=== PATIENT | male | born 1970 | race African-American/Black ===

== ENCOUNTER 2022-03-21 09:49 | Inpatient (IN) | payer OTHER ==
[2022-03-21 10:17] VITALS: BMI 21.9
[2022-03-21] MEDS ORDERED: BENZOCAINE/MENTHOL (CHLORASEPTIC ) LOZENGE MM PRN (11:11)
[2022-03-21] MEDS ORDERED: NICOTINE 10 MG CARTRIDGE (INHALER) IH PRN (11:11)
[2022-03-21] MEDS ORDERED: MAG HYDROX/AL HYDROX/SIMETH 30 ML UNIT-DOSE CUP PO PRN (11:11)
[2022-03-21] MEDS ORDERED: LOPERAMIDE HCL 2 MG CAPSULE PO PRN (11:11)
[2022-03-21] MEDS ORDERED: POLYETHYLENE GLYCOL (HEALTHYLAX) 3350 17 GM PACKET PO PRN (11:11)
[2022-03-21] MEDS ORDERED: ACETAMINOPHEN 325 MG TABLET (FP) PO PRN ×2 (11:11)
[2022-03-21] MEDS ORDERED: ONDANSETRON *ODT* 4 MG TABLET SL PRN (11:11)
[2022-03-21] MEDS ORDERED: DICYCLOMINE HCL 10 MG CAPSULE PO PRN (11:11)
[2022-03-21] MEDS ORDERED: BISMUTH SUBSALICYLATE 262 MG/15 ML BTL PO PRN (11:11)
[2022-03-21] MEDS ORDERED: IBUPROFEN 600 MG TABLET (FP) PO PRN (11:11)
[2022-03-21] MEDS ORDERED: MAGNESIUM HYDROX 2400MG/30ML ORAL SUSPENSION 30 ML CUP PO PRN (11:11)
[2022-03-21] MEDS ORDERED: IBUPROFEN 400 MG TABLET (FP) PO PRN (11:11)
[2022-03-21] MEDS ORDERED: hydrOXYzine PAMOATE 25 MG CAPSULE (FP) PO PRN (11:11)
[2022-03-21] MEDS ORDERED: METHOCARBAMOL 500 MG TABLET PO PRN (11:11)
[2022-03-21] MEDS ORDERED: IBUPROFEN 600 MG TABLET (FP) PO ONE (11:41)
[2022-03-21] MEDS: NICOTINE 7 MG/24 HOURS TOPICAL PATCH TD SCH (12:43)
[2022-03-21] MEDS: levETIRAcetam 500 MG TABLET (FP) PO SCH ×2 (12:43→22:31)
[2022-03-21 14:48] LABS: HEMATOCRIT 30.3 % (35.4-49); HEMOGLOBIN 9.7 GM/dL (11.7-16.9); MCH 32.7 pg (25.7-33.7); MEAN CELL VOLUME 102.5 fl (80-96); MEAN PLT VOLUME 7.6 fl (7.5-11.1); PLATELET COUNT 134 10^3/uL (134-434); RBC 2.96 M/mm3 (4.00-5.60); RDW 14.2 % (11.9-15.9)
[2022-03-21 15:27] LABS: CHLORIDE 101 mmol/L (98-107); SODIUM 141 mmol/L (136-145)
[2022-03-21 15:39] LABS: CALCIUM 9.4 mg/dL (8.5-10.1); CO2 27 mmol/L (21-32); SGPT/ALT 40 U/L (13-61)
[2022-03-21 15:40] LABS: GLUCOSE,RANDOM 200 mg/dL (74-106)
[2022-03-21 15:41] LABS: TOT PROT 7.4 g/dl (6.4-8.2)
[2022-03-21 15:42] LABS: CREATININE 0.8 mg/dL (0.55-1.3); SGOT/AST 77 U/L (15-37)
[2022-03-21 15:43] LABS: ALK PHOS 97 U/L (45-117)
[2022-03-21 15:46] LABS: BILIRUBIN,TOTAL 1.4 mg/dL (0.2-1)
[2022-03-21 15:47] LABS: ANION GAP 13 MMOL/L (8-16)
[2022-03-21] MEDS ORDERED: POTASSIUM CHLORIDE ORAL LIQUID 20 MEQ/15 ML PO ONE ×2 (16:00→18:00)
[2022-03-21] MEDS: FERROUS SO4 325 MG TABLET (FP) PO SCH (17:51)
[2022-03-21] MEDS: THIAMINE HCL 100 MG TABLET (FP) PO SCH (22:31)
[2022-03-21] MEDS: MELATONIN 5 MG TABLETS PO SCH (22:31)
[2022-03-21] MEDS: POTASSIUM CHLORIDE ORAL LIQUID 20 MEQ/15 ML PO SCH (22:31)
[2022-03-22] MEDS: FERROUS SO4 325 MG TABLET (FP) PO SCH ×2 (07:43→17:59)
[2022-03-22] MEDS ORDERED: chlordiazePOXIDE HCL 25 MG CAPSULE PO PRN (10:03)
[2022-03-22] MEDS: levETIRAcetam 500 MG TABLET (FP) PO SCH ×2 (10:14→22:38)
[2022-03-22] MEDS: POTASSIUM CHLORIDE ORAL LIQUID 20 MEQ/15 ML PO SCH ×2 (10:14→22:38)
[2022-03-22] MEDS: PRENATAL VITAMINS W/ FOLIC ACID TABLET (FP) PO SCH (10:14)
[2022-03-22] MEDS: NICOTINE 7 MG/24 HOURS TOPICAL PATCH TD SCH (10:16)
[2022-03-22] MEDS: chlordiazePOXIDE HCL 25 MG CAPSULE PO SCH ×3 (11:36→22:38)
[2022-03-22] MEDS: MELATONIN 5 MG TABLETS PO SCH (22:37)
[2022-03-22] MEDS: THIAMINE HCL 100 MG TABLET (FP) PO SCH (22:37)
[2022-03-23] MEDS: chlordiazePOXIDE HCL 25 MG CAPSULE PO SCH ×4 (06:16→22:23)
[2022-03-23] MEDS: FERROUS SO4 325 MG TABLET (FP) PO SCH ×2 (07:48→17:28)
[2022-03-23] MEDS: POTASSIUM CHLORIDE ORAL LIQUID 20 MEQ/15 ML PO SCH ×2 (10:30→21:38)
[2022-03-23] MEDS: PRENATAL VITAMINS W/ FOLIC ACID TABLET (FP) PO SCH (10:30)
[2022-03-23] MEDS: NICOTINE 7 MG/24 HOURS TOPICAL PATCH TD SCH (10:31)
[2022-03-23] MEDS: levETIRAcetam 500 MG TABLET (FP) PO SCH ×2 (10:31→21:38)
[2022-03-23 14:44] LABS: HEMATOCRIT 35.8 % (35.4-49); HEMOGLOBIN 11.6 GM/dL (11.7-16.9); MCH 33.5 pg (25.7-33.7); MCHC 32.5 g/dl (32.0-35.9); MEAN CELL VOLUME 103.3 fl (80-96); MEAN PLT VOLUME 8.6 fl (7.5-11.1); PLATELET COUNT 189 10^3/uL (134-434); RBC 3.47 M/mm3 (4.00-5.60); RDW 14.7 % (11.9-15.9); WHITE BLOOD COUNT 4.8 K/mm3 (4.0-10.0)
[2022-03-23 15:09] LABS: ALBUMIN 4.2 g/dl (3.4-5.0); BLOOD UREA NITROGEN 4.9 mg/dL (7-18)
[2022-03-23 15:12] LABS: CREATININE 0.7 mg/dL (0.55-1.3)
[2022-03-23 15:14] LABS: BILIRUBIN,TOTAL 0.5 mg/dL (0.2-1)
[2022-03-23 15:38] LABS: CALCIUM 10.4 mg/dL (8.5-10.1)
[2022-03-23] MEDS: THIAMINE HCL 100 MG TABLET (FP) PO SCH (21:38)
[2022-03-23] MEDS: MELATONIN 5 MG TABLETS PO SCH (21:38)
[2022-03-24] MEDS: chlordiazePOXIDE HCL 25 MG CAPSULE PO SCH ×4 (05:45→22:27)
[2022-03-24] MEDS: FERROUS SO4 325 MG TABLET (FP) PO SCH ×2 (07:37→18:09)
[2022-03-24] MEDS: levETIRAcetam 500 MG TABLET (FP) PO SCH ×2 (10:23→22:26)
[2022-03-24] MEDS: POTASSIUM CHLORIDE ORAL LIQUID 20 MEQ/15 ML PO SCH (10:23)
[2022-03-24] MEDS: NICOTINE 7 MG/24 HOURS TOPICAL PATCH TD SCH (10:23)
[2022-03-24] MEDS: PRENATAL VITAMINS W/ FOLIC ACID TABLET (FP) PO SCH (10:23)
[2022-03-24] MEDS: MELATONIN 5 MG TABLETS PO SCH (22:26)
[2022-03-24] MEDS: THIAMINE HCL 100 MG TABLET (FP) PO SCH (22:27)
[2022-03-25] MEDS ORDERED: chlordiazePOXIDE HCL 10 MG CAPSULE PO PRN
[2022-03-25] MEDS: chlordiazePOXIDE HCL 10 MG CAPSULE PO SCH ×4 (05:29→22:27)
[2022-03-25] MEDS: FERROUS SO4 325 MG TABLET (FP) PO SCH ×2 (07:28→17:51)
[2022-03-25] MEDS: NICOTINE 7 MG/24 HOURS TOPICAL PATCH TD SCH (10:16)
[2022-03-25] MEDS: PRENATAL VITAMINS W/ FOLIC ACID TABLET (FP) PO SCH (10:16)
[2022-03-25] MEDS: levETIRAcetam 500 MG TABLET (FP) PO SCH ×2 (10:16→22:27)
[2022-03-25] MEDS: MELATONIN 5 MG TABLETS PO SCH (22:27)
[2022-03-25] MEDS: THIAMINE HCL 100 MG TABLET (FP) PO SCH (22:27)
[2022-03-26] MEDS: chlordiazePOXIDE HCL 10 MG CAPSULE PO SCH ×2 (05:37→18:25)
[2022-03-26] MEDS: FERROUS SO4 325 MG TABLET (FP) PO SCH ×2 (07:06→18:25)
[2022-03-26] MEDS: PRENATAL VITAMINS W/ FOLIC ACID TABLET (FP) PO SCH (10:12)
[2022-03-26] MEDS: levETIRAcetam 500 MG TABLET (FP) PO SCH ×2 (10:12→22:14)
[2022-03-26] MEDS: NICOTINE 7 MG/24 HOURS TOPICAL PATCH TD SCH (10:12)
[2022-03-26] MEDS: MELATONIN 5 MG TABLETS PO SCH (22:14)
[2022-03-26] MEDS: THIAMINE HCL 100 MG TABLET (FP) PO SCH (22:14)
[2022-03-27] MEDS ORDERED: chlordiazePOXIDE HCL 10 MG CAPSULE PO ONE (05:00)
[2022-03-27] MEDS: FERROUS SO4 325 MG TABLET (FP) PO SCH (07:03)
[2022-03-27 09:04] VITALS: BP 121/83; PULSE 84; RESP 16; TEMP 96.8
== END 2022-03-27 10:22 | disposition other institution (70) | DRG 775 ==
LOC: YASAS 09:49 → Y3N 11:29
PROVIDERS: ADMIT Allergy & Immunology; ATTEND Surgery
PROC: HZ2ZZZZ Detoxification Services for Substance Abuse Treatment (ICD-10-PCS; principal; 2022-03-21)
DX: F10.230 Alcohol dependence with withdrawal, uncomplicated (principal); F12.20 Cannabis dependence, uncomplicated; F17.210 Nicotine dependence, cigarettes, uncomplicated; D64.9 Anemia, unspecified; E83.52 Hypercalcemia; G40.909 Epilepsy, unspecified, not intractable, without status epilepticus; M54.50 Low back pain, unspecified; R79.89 Other specified abnormal findings of blood chemistry
CPT/HCPCS: 36415; 80053; 82310; 82607; 82746; 83036; 83540; 83550; 85027; 85045; 85660; 86780; C9803-CS; U0003; U0005

== ENCOUNTER 2022-10-09 14:15 | Inpatient (IN) | payer OTHER ==
[2022-10-09 15:27] VITALS: BMI 20.5
[2022-10-09] MEDS ORDERED: ONDANSETRON *ODT* 4 MG TABLET SL PRN (16:13)
[2022-10-09] MEDS ORDERED: BENZONATATE 200 MG CAPSULE PO PRN (16:13)
[2022-10-09] MEDS ORDERED: IBUPROFEN 600 MG TABLET (FP) PO PRN (16:13)
[2022-10-09] MEDS ORDERED: POLYETHYLENE GLYCOL (HEALTHYLAX) 3350 17 GM PACKET PO PRN (16:13)
[2022-10-09] MEDS ORDERED: guaiFENesin 600 MG TABLET.ER (FP) PO PRN (16:13)
[2022-10-09] MEDS ORDERED: NALOXONE HCL (KLOXXADO) 8 MG SPRAY NS PRN (16:13)
[2022-10-09] MEDS ORDERED: NALOXONE HCL 0.4 MG/ML VIAL IM PRN (16:13)
[2022-10-09] MEDS ORDERED: BENZOCAINE/MENTHOL (CHLORASEPTIC ) LOZENGE MM PRN (16:13)
[2022-10-09] MEDS ORDERED: DICYCLOMINE HCL 10 MG CAPSULE PO PRN (16:13)
[2022-10-09] MEDS ORDERED: MAG HYDROX/AL HYDROX/SIMETH 30 ML UNIT-DOSE CUP PO PRN (16:13)
[2022-10-09] MEDS ORDERED: LOPERAMIDE HCL 2 MG CAPSULE PO PRN (16:13)
[2022-10-09] MEDS ORDERED: MAGNESIUM HYDROX 2400MG/30ML ORAL SUSPENSION 30 ML CUP PO PRN (16:13)
[2022-10-09] MEDS ORDERED: ACETAMINOPHEN 325 MG TABLET (FP) PO PRN (16:13)
[2022-10-09] MEDS ORDERED: IBUPROFEN 400 MG TABLET (FP) PO PRN (16:13)
[2022-10-09] MEDS ORDERED: BISMUTH SUBSALICYLATE 524 MG/30 ML PO PRN (16:13)
[2022-10-09] MEDS ORDERED: PRENATAL VITAMINS W/ FOLIC ACID TABLET (FP) PO ONE (17:27)
[2022-10-09] MEDS ORDERED: IBUPROFEN 600 MG TABLET (FP) PO ONE (17:28)
[2022-10-09] MEDS: PRENATAL VITAMINS W/ FOLIC ACID TABLET (FP) PO SCH (17:31)
[2022-10-09] MEDS: VITAMINS A AND D TOPICAL OINTMENT 60 GM TUBE TP SCH (18:30)
[2022-10-09] MEDS: THIAMINE HCL 100 MG TABLET (FP) PO SCH (22:05)
[2022-10-09] MEDS: chlordiazePOXIDE HCL 25 MG CAPSULE PO SCH (22:05)
[2022-10-09] MEDS: MELATONIN 5 MG TABLETS PO SCH (22:07)
[2022-10-09] MEDS ORDERED: levETIRAcetam 500 MG TABLET (FP) PO ONE (23:10)
[2022-10-10] MEDS: VITAMINS A AND D TOPICAL OINTMENT 60 GM TUBE TP SCH ×5 (00:09→23:07)
[2022-10-10] MEDS: chlordiazePOXIDE HCL 25 MG CAPSULE PO SCH ×4 (05:25→22:06)
[2022-10-10] MEDS: levETIRAcetam 500 MG TABLET (FP) PO SCH ×2 (10:08→21:05)
[2022-10-10] MEDS: METHOCARBAMOL 500 MG TABLET PO PRN ×2 (10:08→21:05)
[2022-10-10] MEDS: NICOTINE 14 MG/24 HOURS TOPICAL PATCH TD SCH (10:08)
[2022-10-10] MEDS: hydrOXYzine PAMOATE 25 MG CAPSULE (FP) PO PRN (10:08)
[2022-10-10] MEDS: PRENATAL VITAMINS W/ FOLIC ACID TABLET (FP) PO SCH (10:09)
[2022-10-10] MEDS ORDERED: PNEUMOC 20-VAL CONJ-DIP CRM/PF 0.5 ML SYRINGE IM ONE (12:00)
[2022-10-10 12:18] LABS: HEMATOCRIT 33.4 % (35.4-49); HEMOGLOBIN 10.8 GM/dL (11.7-16.9); MCH 32.3 pg (25.7-33.7); MCHC 32.3 g/dl (32.0-35.9); MEAN CELL VOLUME 100.3 fl (80-96); MEAN PLT VOLUME 7.5 fl (7.5-11.1); PLATELET COUNT 306 10^3/uL (134-434); RBC 3.33 M/mm3 (4.00-5.60); RDW 15.8 % (11.9-15.9)
[2022-10-10 12:25] LABS: POTASSIUM 4.5 mmol/L (3.5-5.1)
[2022-10-10 13:01] LABS: CALCIUM 9.7 mg/dL (8.5-10.1)
[2022-10-10 13:02] LABS: ALBUMIN 4.3 g/dl (3.4-5.0); BLOOD UREA NITROGEN 13.3 mg/dL (7-18)
[2022-10-10 13:05] LABS: CREATININE 0.9 mg/dL (0.55-1.3)
[2022-10-10 13:06] LABS: BILIRUBIN,TOTAL 1.2 mg/dL (0.2-1)
[2022-10-10] MEDS: THIAMINE HCL 100 MG TABLET (FP) PO SCH (21:05)
[2022-10-10] MEDS: MELATONIN 5 MG TABLETS PO SCH (22:09)
[2022-10-11] MEDS: chlordiazePOXIDE HCL 25 MG CAPSULE PO SCH ×4 (05:13→22:34)
[2022-10-11] MEDS: VITAMINS A AND D TOPICAL OINTMENT 60 GM TUBE TP SCH ×4 (05:14→23:22)
[2022-10-11] MEDS: levETIRAcetam 500 MG TABLET (FP) PO SCH ×2 (10:03→22:34)
[2022-10-11] MEDS: PRENATAL VITAMINS W/ FOLIC ACID TABLET (FP) PO SCH (10:03)
[2022-10-11] MEDS: hydrOXYzine PAMOATE 25 MG CAPSULE (FP) PO PRN (10:03)
[2022-10-11] MEDS: METHOCARBAMOL 500 MG TABLET PO PRN (10:03)
[2022-10-11] MEDS: NICOTINE 14 MG/24 HOURS TOPICAL PATCH TD SCH (10:03)
[2022-10-11] MEDS: THIAMINE HCL 100 MG TABLET (FP) PO SCH (22:34)
[2022-10-11] MEDS: MELATONIN 5 MG TABLETS PO SCH (22:36)
[2022-10-12] MEDS: chlordiazePOXIDE HCL 10 MG CAPSULE PO SCH ×2 (05:26→10:17)
[2022-10-12] MEDS: VITAMINS A AND D TOPICAL OINTMENT 60 GM TUBE TP SCH ×2 (05:28→11:11)
[2022-10-12 09:10] VITALS: BP 123/91; PULSE 80; RESP 18; TEMP 97.7
[2022-10-12] MEDS: levETIRAcetam 500 MG TABLET (FP) PO SCH (10:16)
[2022-10-12] MEDS: PRENATAL VITAMINS W/ FOLIC ACID TABLET (FP) PO SCH (10:16)
[2022-10-12] MEDS: NICOTINE 14 MG/24 HOURS TOPICAL PATCH TD SCH (10:17)
[2022-10-13] MEDS ORDERED: chlordiazePOXIDE HCL 10 MG CAPSULE PO SCH (05:00)
[2022-10-14] MEDS ORDERED: chlordiazePOXIDE HCL 10 MG CAPSULE PO ONE (05:00)
== END 2022-10-12 11:55 | disposition left against medical advice (07) | DRG 770 ==
LOC: YASAS 14:15 → Y6N 17:06
PROVIDERS: ADMIT Allergy & Immunology; ATTEND Surgery
PROC: HZ2ZZZZ Detoxification Services for Substance Abuse Treatment (ICD-10-PCS; principal; 2022-10-09)
DX: F10.230 Alcohol dependence with withdrawal, uncomplicated (principal); F12.20 Cannabis dependence, uncomplicated; F17.210 Nicotine dependence, cigarettes, uncomplicated; G40.909 Epilepsy, unspecified, not intractable, without status epilepticus; D64.9 Anemia, unspecified; M54.50 Low back pain, unspecified; G89.29 Other chronic pain; Z91.81 History of falling; Z86.69 Personal history of other diseases of the nervous system and sense organs; Z88.8 Allergy status to other drugs, medicaments and biological substances
CPT/HCPCS: 36415; 80053; 85027; 86780; 87635; 87811; 90677